=== PATIENT | male | born 1935 | race Two or more races ===

== ENCOUNTER 2024-06-19 13:26 | Emergency (ER) | payer MEDICARE, SELFPAY ==
[2024-06-19 13:28] VITALS: BMI 29.2
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
[2024-06-19 13:45] VITALS: BP 162/90; PULSE 81; RESP 15; TEMP 36.8; O2SAT 97
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
--- NOTE | 2024-06-19 13:54 | XR_ITS ---
Examination: AP chest single view Technique one AP portable semiupright chest single view Exam date and time: June 19, 2024 at 1434 hrs. Comparison May 04, 2020 Indications: Onset chest pain today. Findings: Mild heart failure Mild to moderate enlargement cardiac contour. Prominent vascular congestion with early septal edema at the lung bases Cardiac leads satisfactory position Impression: Mild CHF
[2024-06-19] MEDS: MORPHINE SULF INJ 10 MG/ML VIAL IVP (14:00)
[2024-06-19] MEDS: BACITRACIN OINT 15 GM TUBE 60 GM TOP (14:07)
[2024-06-19] MEDS: RINGERS LACTATED 1000 ML 1,000 ML 999 ML IV (14:07)
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
[2024-06-19] MEDS: RINGERS LACTATED 1000 ML 1,000 ML 600 ML IV (14:17)
[2024-06-19] MEDS: TETANUS,DIPHTHERIA TOXOIDS/PF (ADULT) 0.5 ML SYRINGE IMi (14:49)
--- NOTE | 2024-06-19 15:45 | PC.NURSE ---
GAVE SBAR REPORT TO JANES HILL RN FROM [facility] AT THIS TIME.
== END 2024-06-19 15:20 | disposition short-term general hospital (02) ==
LOC: SERX 15:06
PROVIDERS: Emergency Provider Emergency Medicine; PCP Physician Assistant
DX: T24.302A Burn of third degree of unspecified site of left lower limb, except ankle and foot, initial encounter (principal); T24.301A Burn of third degree of unspecified site of right lower limb, except ankle and foot, initial encounter; T31.30 Burns involving 30-39% of body surface with 0% to 9% third degree burns; X08.8XXA Exposure to other specified smoke, fire and flames, initial encounter; Y93.89 Activity, other specified; I11.0 Hypertensive heart disease with heart failure; I50.9 Heart failure, unspecified; Z23 Encounter for immunization
CPT/HCPCS: 71045; 80053; 81001; 82803; 83605; 83880; 84484; 85025; 87040; 90471; 90714; 96360; 96361; 96374; 99291; J2270; J7120